=== PATIENT | male | born 1995 | race Caucasian/White ===

== ENCOUNTER 2016-03-26 18:47 | Emergency (ER) | payer BC ==
[2016-03-26] MEDS ORDERED: NS 0.9% 1000 ML* 2,000 ML IV ONE (19:15)
[2016-03-26] MEDS ORDERED: Ondansetron INJ* 2 MG/ML VIAL IV ONE ×2 (19:15→19:52)
[2016-03-26] MEDS ORDERED: Ondansetron INJ* 2 MG/ML VIAL ONE (19:16)
[2016-03-26 19:29] LABS: Hematocrit 46 % (42-52); Hemoglobin 15.5 g/dl (14.0-18.0); Mean Corpuscular HGB Conc 34 g/dl (31-36); Mean Corpuscular Hemoglobin 31 pg (27-31); Mean Corpuscular Volume 91 fL (80-94); Mean Platelet Volume 10 um3 (7.4-10.4); Red Blood Count 5.08 10^6/ul (4.0-5.4); Red Cell Distribution Width 13 % (10.5-15); White Blood Count 13.1 10^3/ul (3.5-10.8)
[2016-03-26 19:31] LABS: Add Diff/Slide Review? Slide Review Added; Comments Flag Yes
[2016-03-26 19:40] LABS: ALT 11 U/L (7-52); AST 12 U/L (13-39); Albumin 5.1 g/dL (3.2-5.2); Alkaline Phosphatase 45 U/L (34-104); BUN/Creatinine Ratio 15.8 (8-20); Blood Urea Nitrogen 16 mg/dL (6-24); CO2 Carbon Dioxide 25 mmol/L (22-32); EGFR African American 121.1 (>60); EGFR Non-African American 94.2 (>60); Globulin 2.6 g/dL (2-4); Glucose 120 mg/dL (70-100); Lipase < 10 U/L (11.0-82.0); Potassium 3.8 mmol/L (3.5-5.0); Sodium 137 mmol/L (133-145); Total Protein 7.7 g/dL (6.4-8.9)
[2016-03-26 19:45] LABS: Anion Gap 11 mmol/L (2-11); Chloride 101 mmol/L (101-111)
[2016-03-26 19:48] LABS: Immature Granulocytes 18 % (0-9); Neutrophil % 78 % (38-83)
[2016-03-26 19:49] LABS: RBC Morphology Normal (Normal)
[2016-03-26] MEDS ORDERED: NS 0.9% 1000 ML* 1,000 ML IV ONE (19:52)
--- NOTE | 2016-03-26 20:21 | ED ---
Bruna Smith Michael, scribed for Alex Xiong MD on 03/26/16 at 1955 . GI/ HPI - HPI Summary HPI Summary: 20 y/o male comes to the ED presenting with n/v/d that started suddenly today at 1200. The pt reports that has had a decrease in appetite and vomits any food he has. He denies fever. The pt denies a significant PMHx. - History of Current Complaint Chief Complaint: EDNauseaVomitDiarrh Time Seen by Provider: 03/26/16 19:50 Stated Complaint: VOMITING/DIARRHEA Hx Obtained From: Patient, Medical Records Onset/Duration: Started Hours Ago, Still Present Timing: Intermittent Severity: Moderate Current Severity: Moderate Pain Intensity: 0 Associated Signs and Symptoms: Positive: Nausea, Vomiting, Diarrhea. Negative: Fever - Allergy/Home Medications Allergies/Adverse Reactions: Allergies Allergy/AdvReac Type Severity Reaction Status Date / Time No Known Allergies Allergy Verified 03/26/16 22:01 PMH/Surg Hx/FS Hx/Imm Hx Previously Healthy: Yes - pt denies a positive PMHx - Immunization History Date of Tetanus Vaccine: utd Date of Influenza Vaccine: unk Infectious Disease History: No Infectious Disease History: Denies: Traveled Outside the [place] in Last 30 Days - Family History Known Family History: Negative: Hypertension - Social History Occupation: Student Lives: With Family Alcohol Use: Occasionally Substance Use Type: Reports: Marijuana Substance Use Comment - Amount & Last Used: yesterday, small amount Smoking Status (MU): Former Smoker Review of Systems Negative: Fever Positive: Vomiting, Diarrhea, Nausea All Other Systems Reviewed And Are Negative: Yes Physical Exam Triage Information Reviewed: Yes Vital Signs On Initial Exam: Initial Vitals Temp Pulse Resp BP Pulse Ox 98.1 F 111 20 86/46 100 03/26/16 18:53 03/26/16 18:53 03/26/16 18:53 03/26/16 18:53 03/26/16 18:53 Vital Signs Reviewed: Yes Appearance: Positive: Well-Appearing, No Pain Distress Skin: Positive: Warm Head/Face: Positive: Normal Head/Face Inspection Eyes: Positive: ISH ENT: Positive: Hearing grossly normal Neck: Positive: Supple Respiratory/Lung Sounds: Positive: Clear to Auscultation, Breath Sounds Present Cardiovascular: Positive: RRR Abdomen Description: Positive: Nontender, Soft Bowel Sounds: Positive: Present Musculoskeletal: Positive: Strength/ROM Intact Neurological: Positive: Sensory/Motor Intact, Alert, Oriented to Person Place, Time Psychiatric: Positive: Affect/Mood Appropriate - Jaill Coma Scale Coma Scale Total: 15 Diagnostics - Vital Signs Vital Signs Temp Pulse Resp BP Pulse Ox 03/26/16 18:53 98.1 F 111 20 86/46 100 - Laboratory Lab Results: Lab Results 03/26/16 03/26/16 03/26/16 Range/Units 19:10 19:10 19:10 WBC 13.1 H (3.5-10.8) 10^3/ul RBC 5.08 (4.0-5.4) 10^6/ul Hgb 15.5 (14.0-18.0) g/dl Hct 46 (42-52) % MCV 91 (80-94) fL MCH 31 (27-31) pg MCHC 34 (31-36) g/dl RDW 13 (10.5-15) % Plt Count 240 (150-450) 10^3/ul MPV 10 (7.4-10.4) um3 Immature Gran % (Auto) 18 H (0-9) % Neut % (Auto) 92.3 H (38-83) % Lymph % (Auto) 1.1 L (25-47) % [place] % (Auto) 5.0 (1-9) % Eos % (Auto) 0.6 (0-6) % Baso % (Auto) 1.0 (0-2) % Absolute Neuts (auto) 12.0 H (1.5-7.7) 10^3/ul Absolute Lymphs (auto) 0.1 L (1.0-4.8) 10^3/ul Absolute Monos (auto) 0.7 (0-0.8) 10^3/ul Absolute Eos (auto) 0.1 (0-0.6) 10^3/ul Absolute Basos (auto) 0.1 (0-0.2) 10^3/ul Absolute Nucleated RBC 0 10^3/ul Neutrophils % 78 (38-83) % Band Neutrophils % 18 H (0-8) % Lymphocytes % 2 L (25-47) % Monocytes % 2 (0-13) % Nucleated RBC % 0 Normal RBC Morphology Normal (Normal) Sodium 137 (133-145) mmol/L Potassium 3.8 (3.5-5.0) mmol/L Chloride 101 (101-111) mmol/L Carbon Dioxide 25 (22-32) mmol/L Anion Gap 11 (2-11) mmol/L BUN 16 (6-24) mg/dL Creatinine 1.01 (0.67-1.17) mg/dL Est GFR ( Amer) 121.1 (>60) Est GFR (Non-Af Amer) 94.2 (>60) BUN/Creatinine Ratio 15.8 (8-20) Glucose 120 H (70-100) mg/dL Lactic Acid 1.2 (0.5-2.0) mmol/L Calcium 10.0 (8.6-10.3) mg/dL Total Bilirubin 1.30 H (0.2-1.0) mg/dL AST 12 L (13-39) U/L ALT 11 (7-52) U/L Alkaline Phosphatase 45 (34-104) U/L C-Reactive Protein 2.30 (< 5.00) mg/L Total Protein 7.7 (6.4-8.9) g/dL Albumin 5.1 (3.2-5.2) g/dL Globulin 2.6 (2-4) g/dL Albumin/Globulin Ratio 2.0 (1-3) Lipase < 10 L (11.0-82.0) U/L Result Diagrams: 03/26/16 19:10 03/26/16 19:10 Lab Statement: Any lab studies that have been ordered have been reviewed, and results considered in the medical decision making process. Re-Evaluation - Re-Evaluation Second Eval Change: Improved GIGU Course/Dx - Diagnoses Provider Diagnoses: Gastroenteritis Discharge - Discharge Plan Condition: Stable Disposition: HOME Patient Education Materials: Gastroenteritis (ED) Referrals: [facility] [place] [Outside] Additional Instructions: You will follow up with [facility] [place] within the next 2-3 days. You should keep to a bland diet. Please return to the ED if you symptoms worsen. The documentation as recorded by the Bruna carreon Michael accurately reflects the service I personally performed and the decisions made by me, Alex Xiong MD.
[2016-03-26] MEDS ORDERED: Ondansetron ODT TAB* 4 MG PO ONE (21:03)
[2016-03-26] MEDS ORDERED: Acetaminophen TAB* 325 MG PO ONE (21:57)
[2016-03-26 23:26] VITALS: BP 100/33
== END 2016-03-26 23:45 | disposition home or self-care (01) ==
LOC: ED 18:47
DX: K52.9 Noninfective gastroenteritis and colitis, unspecified (principal); Z87.891 Personal history of nicotine dependence
CPT/HCPCS: 36415; 80053; 83605; 83690; 85025; 86140; 96360; 96374; 96375; 99284; A9270-GY; J2405